=== PATIENT | male | born 1970 | race Caucasian/White ===

== ENCOUNTER 2017-04-20 16:00 | Emergency (ER) | payer SELFPAY ==
[2017-04-20] MEDS ORDERED: XYLOCAINE 2% HCL 20 ML MDV ONE (17:09)
[2017-04-20] MEDS ORDERED: Adacel Vial IM ONE (17:09)
[2017-04-20] MEDS ORDERED: XYLOCAINE 2% HCL 20 ML MDV IJ ONE (17:13)
--- NOTE | 2017-04-20 17:30 | ERPHSYRPT ---
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 Method of Injury: incised Occurred: just prior to arrival Severity of Pain-Max: none Severity of Pain-Current: none Lower Extremities Pain: thigh: right Modifying Factors: Improves With: nothing Associated Symptoms: none Allergies/Adverse Reactions: No Known Drug Allergies Allergy (Verified 04/20/17 17:08) Hx Tetanus, Diphtheria Vaccination/Date Given: No Hx Influenza Vaccination/Date Given: No Hx Pneumococcal Vaccination/Date Given: No Immunizations Up to Date: Yes - Review of Systems Constitutional: No Symptoms, No Fever, No Chills Respiratory: No Symptoms, No Cough, No Dyspnea Cardiac: No Symptoms, No Chest Pain, No Edema, No Syncope Musculoskeletal: Injury Endocrine: No Symptoms - Past Medical History Pertinent Past Medical History: No - Past Surgical History Past Surgical History: No Other Surgical History: TONSILECTOMY - Social History Smoking Status: Never smoker Exposure to second hand smoke: No Drug Use: none Patient Lives Alone: No - Nursing Vital Signs Nursing Vital Signs: Initial Vital Signs Temperature 98.9 F 04/20/17 17:05 Pulse Rate 77 04/20/17 17:05 Respiratory Rate 20 04/20/17 17:05 Blood Pressure 141/84 04/20/17 17:05 O2 Sat by Pulse Oximetry 99 04/20/17 17:05 Pain Scale Pain Intensity 2 - Physical Exam General Appearance: alert Legs Exam: right leg: soft tissue tenderness (2CM SUPERFICIAL LACERATION, NO EVIDENCE OF FOREIGN BODY ) SpO2 Interpretation: normal SpO2: 99 Oxygen Delivery: Room Air Procedures - Laceration/Wound Repair Right Medial Thigh Wound Location: Right (MID MEDIAL THIGH) Wound Length (cm): 2 Wound's Depth, Shape: superficial Irrigated: Yes Hibiclens Prep: Yes Anesthesia: local, 2% Lidocaine Volume Anesthetic (ccs): 3 Wound Repaired With: sutures Suture Size/Type: 4-0, ethilon Number of Sutures: 5 Layer Closure?: No Sterile Dressing Applied?: Yes Ordered Tests: Medication Summary Discontinued Medications Generic Name Dose Route Start Last Admin Trade Name Kristofer PRN Reason Stop Dose Admin Diphtheria/Tetanus/Acell Pertussis Confirm 04/20/17 17:09 Adacel Vial Administered 04/20/17 17:10 Dose 0.5 ml IM .STK-MED ONE Lidocaine HCl Confirm 04/20/17 17:09 Xylocaine 2% Hcl 20 Ml Mdv Administered 04/20/17 17:10 Dose 1 ml .ROUTE .STK-MED ONE Lidocaine HCl 5 ml 04/20/17 17:13 04/20/17 17:16 Xylocaine 2% Hcl 20 Ml Mdv IJ 04/20/17 17:14 5 ml STAT ONE Administration - Progress Counseled pt/family regarding: diagnosis, need for follow-up - Departure Time of Disposition: 17:30 Departure Disposition: Home Clinical Impression: LACERATION RIGHT THIGH Condition: Stable Critical Care Time: No Referrals: WINNIE REYES MD [Primary Care Provider] - Additional Instructions: CLEANSE WITH SOAP AND WATER TWICE DAILY. HAVE STITCHES REMOVED AT 10 DAYS. ANTIBIOTIC KEFLEX 500MG EVERY 8 HOURS FOR 7 DAYS. WATCH FOR SIGNS OF INFECTION REDNESS, SWELLING OR DRAINAGE. Prescriptions: Cephalexin Mh 500 mg [Keflex 500 mg] 500 mg PO TID #21 capsule
[2017-04-20 17:41] VITALS: BP 133/96; PULSE 78; O2SAT 98
== END 2017-04-20 17:52 | disposition home or self-care (01) ==
LOC: ED 16:00
PROC: 0HQJXZZ Repair Left Upper Leg Skin, External Approach (ICD-10-PCS; principal; 2017-04-20)
DX: S71.111A Laceration without foreign body, right thigh, initial encounter (principal); W26.0XXA Contact with knife, initial encounter; Y99.0 Civilian activity done for income or pay
CPT/HCPCS: 12001; 90471; 90715; 99283